=== PATIENT | female | born 1980 | race Two or more races ===

== ENCOUNTER 2022-12-25 13:14 | Emergency (ER) | payer OTHER ==
[~2022-12-25] VITALS: Ht 167.6 cm; Wt 86.0 kg
[2022-12-25] MEDS ORDERED: DexAMETHasone SOD PHOS 10MG/1ML VIAL INJ IM ONE (16:00)
[2022-12-25 17:18] VITALS: BP 124/74; PULSE 86; RESP 18; TEMP 97.9; O2SAT 98
== END 2022-12-25 17:20 | disposition home or self-care (01) ==
LOC: ER 13:14 → EDBD 13:14 → ER 17:20
DX: S09.90XA Unspecified injury of head, initial encounter (principal); J45.909 Unspecified asthma, uncomplicated; Z88.8 Allergy status to other drugs, medicaments and biological substances; Z90.710 Acquired absence of both cervix and uterus; Z90.89 Acquired absence of other organs; Z98.890 Other specified postprocedural states; V89.2XXA Person injured in unspecified motor-vehicle accident, traffic, initial encounter; Y93.89 Activity, other specified; Y92.89 Other specified places as the place of occurrence of the external cause; Y99.8 Other external cause status
CPT/HCPCS: 70450; 96372; 99285; J1100

== ENCOUNTER 2024-08-01 12:26 | Emergency (ER) | payer MEDICAID, OTHER ==
[~2024-08-01] VITALS: Ht 167.6 cm; Wt 91.0 kg
[2024-08-01 12:48] VITALS: TEMP 97.7
[2024-08-01 13:26] LABS: Basophils # (auto) 0 10 ^3/uL (0-0.2); Basophils % (auto) 0.4 % (0.0-2.0); Eosinophils # (auto) 0.3 10 ^3/uL (0-0.8); Hematocrit 45.8 % (36.0-46.0); Hemoglobin 15.5 g/dL (12.2-16.2); Lymphocytes # (auto) 3.8 10 ^3/uL (0.4-5.4); Lymphocytes % (auto) 40.6 % (10.0-50.0); Mean Corpuscular Hemoglobin 29.4 pg (28.0-32.0); Mean Corpuscular Hgb Conc. 33.8 g/dL (32.0-36.0); Mean Corpuscular Volume 86.9 fL (80.0-100.0); Monocytes # (auto) 0.6 10 ^3/uL (0-1.3); Monocytes % (auto) 6.4 % (0.0-12.0); Neutrophils # (auto) 4.6 10 ^3/uL (1.6-8.6); Neutrophils % (auto) 49.6 % (37.0-80.0); Platelet Count (auto) 288 10^3/uL (140-450); Red Blood Cells 5.26 10^6/uL (4.0-5.20); Red Cell Distribution Width 14.6 % (11.8-14.3); White Blood Cell 9.3 10^3/uL (4.4-10.8)
[2024-08-01 13:33] LABS: Anion Gap 11 (5-15); Carbon Dioxide 23 mmol/L (20-31); Chloride 107 mmol/L (98-107); Potassium 3.6 mmol/L (3.5-5.1); Sodium 141 mmol/L (136-145)
[2024-08-01 13:34] LABS: Calcium 9.9 mg/dL (8.7-10.4)
[2024-08-01 13:39] LABS: BUN/Creatinine Ratio 18.1 (10.0-20.0); Blood Urea Nitrogen 13 mg/dL (9-23); Glucose 96 mg/dL (74-106)
[2024-08-01 13:59] LABS: Urine Bacteria FEW /hpf (None Seen); Urine Blood TRACE /uL (Negative); Urine Clarity Turbid (Clear); Urine Color Colorless (Yellow); Urine Protein, UAD Negative (Negative); Urine Specific Gravity 1.003 (1.001-1.035); Urine Squamous Epithelial Cell FEW /hpf (<5); Urine Urobilinogen Normal (Negative); Urine WBC 25 /HPF (0-5); Urine pH 6.5 (5.0-9.0)
[2024-08-01] MEDS: SODIUM CHLORIDE 0.9% 1,000 ML IV ONE (14:39)
[2024-08-01 14:40] VITALS: PULSE 94; RESP 16; O2SAT 97
--- NOTE | 2024-08-01 14:49 | DVH ---
EXAM: XY CHEST PORTABLE Indication: palpitations Technique: Single frontal view of the chest was obtained Comparison: None FINDINGS: Lines and Tubes: None Lungs: No focal consolidation. Pleura: No effusion. No pneumothorax. Cardiomediastinal contours: Unremarkable Bones: No acute osseous abnormality. IMPRESSION: No acute cardiopulmonary disease.
[2024-08-01] MEDS: cefTRIAXone 1GM/50ML D5W 50 ML IV ONE (15:30)
--- NOTE | 2024-08-01 16:19 | ED.PDOC ---
HPI Comments 44-year-old female presents with a chief complaint of palpitations. Patient states that she was sitting in [place] the [place] and started to have palpitations lasting approximately 8 minutes. Patient reports that this has happened to her before in the past. 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 EMS reports they suspected SVT, as heart rate was around 200 initially, however the patient converted prior to their ability to obtain an EKG showing tachycardia. Patient currently denies any palpitations, chest pain, shortness of breath, edema, recent illness or other symptoms. 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 Location: Chest (L) Radiation: No Radiation Quality: Other (PALPITATIONS) Onset: At Rest Cardiac Risk Factors: None PE Risk Factors: None History of: Other (SIMILAR SENSATION IN THE PAST) Past Medical History PAST MEDICAL HISTORY: Asthma Past Medical History (Other): Arias's disease Surgical History: Hysterectomy, Tonsillectomy 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: No Pertinent 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 Family History Family History: Reviewed,noncontributory to illness Social History Smoker: Non-Smoker Alcohol: Denies ETOH Use Drugs: Denies Drug Use Lives In: Home Constitutional: denies: chills, diaphoresis, fatigue, fever, malaise, sweats, weakness, others EENTM: denies: blurred vision, double vision, ear bleeding, ear discharge, ear drainage, ear pain, ear ringing, eye pain, eye redness, hearing loss, mouth pain, mouth swelling, nasal discharge, nose bleeding, nose congestion, nose pain, photophobia, tearing, throat pain, throat swelling, voice changes, others Respiratory: denies: cough, hemoptysis, orthopnea, SOB at rest, shortness of breath, SOB with excertion, stridor, wheezing, others Cardiovascular: reports: palpitations; denies: chest pain, dizzy spells, diaphoresis, Dyspnea on exertion, edema, irregular heart beat, left arm pain, lightheadedness, PND, syncope, others Gastrointestinal: denies: abdomen distended, abdominal pain, blood streaked bowels, constipated, diarrhea, dysphagia, difficulty swallowing, hematemesis, melena, nausea, poor appetite, poor fluid intake, rectal bleeding, rectal pain, vomiting, others Genitourinary: denies: abnormal vagina bleeding, burning, dyspareunia, dysuria, flank pain, frequency, hematuria, incontinence, pain, , vagina discha rge, urgency, others Neurological: denies: dizziness, fainting, headache, left sided numbness, left sided weakness, numbness, paresthesia, pre-existing deficit, right sided numbness, right sided weakness, seizure, speech problems, tingling, tremors, weakness, others Musculoskeletal: denies: back pain, gout, joint pain, joint swelling, muscle pain, muscle stiffness, neck pain, others Integumetry: denies: bruises, change in color, change in hair/nails, dryness, laceration, lesions, lumps, rash, wounds, others Allergic/Immunocompromised: denies: Difficulty Healing, Frequent Infections, Hives, Itching, others Hematologic/Lymphatic: denies: anemia, blood clots, easy bleeding, easy bruising, swollen glands, others Endocrine: denies: excessive hunger, excessive sweating, excessive thirst, excessive urination, flushing, intolerance to cold, intolerance to heat, unexplained weight gain, unexplained weight loss, others Psychiatric: denies: anxiety, bipolar disorder, depression, hopeless, panic disorder, schizophrenia, sleepless, suicidal, others All Other Systems: Reviewed and Negative Physical Exam General Appearance: No Apparent Distress HEENT: Other (Pupils and face symmetric. Moist mucous membranes.) Neck: Full Range of Motion, Normal Inspection Respiratory: Lungs Clear, No Accessory Muscle Use, No Respiratory Distress, Normal Breath Sounds Cardiovascular: No Edema, No JVD, Regular Rate/Rhythm Breast Exam: Deferred Gastrointestinal: Non Tender, Soft Genitalia: Deferred Pelvic: Deferred Rectal: Deferred Extremities: Normal inspection, Normal range of motion, Non-tender, No pedal edema Neurologic: Alert (Oriented x4), Normal Affect, Normal Mood, Other (Ambulatory) Cerebellar Function: NOT DONE Reflexes: NOT DONE Skin: Dry, Normal Color, Warm Lymphatic: NOT DONE EKG EKG : Comments Sinus rhythm, rate 94, normal intervals, normal axis, normal QRS, nonspecific T change. Was a procedure done? Was a procedure done?: No CP Differential Dx Differential Diagnosis: A-fib, A-Flutter, Atrial Dysrhythmia, Electrolyte Disorder, Heart Failure, Hyperthyroidism, AK, PSVT, V-Tach X-Ray, Labs, Meds, VS Vital Signs Date Time Temp Pulse Resp B/P (MAP) Pulse Ox O2 Delivery O2 Flow Rate FiO2 08/01/24 14:45 96 Room Air* 0 21 08/01/24 14:40 94 16 97 Room Air* 0 21 08/01/24 14:40 92 16 96/71 (79) 95 08/01/24 12:48 97.7 100 16 114/75 (88) 100 97.7 08/01/24 12:26 94 Lab Test 08/01/24 14:22 08/01/24 13:39 08/01/24 13:14 Range/Units Troponin I High Sensitivity 4 4 </=34 ng/L Urine Color Colorless Yellow Urine Clarity Turbid H Clear Urine pH 6.5 5.0-9.0 Urine Specific [place] 1.003 1.001-1.035 Urine Protein Negative Negative Urine Ketones Negative Negative Urine Blood Trace H Negative /uL Urine Nitrite Negative Negative Urine Bilirubin Negative Negative Urine Urobilinogen Normal Negative mg/dL Urine Leukocyte Esterase 3+ Negative /uL Urine RBC 8 0 - 4 /hpf Urine Microscopic WBC 25 H 0-5 /HPF Urine Squamous Epithelial Cells Few <5 /hpf Urine Bacteria Few H None Seen /hpf Urine Glucose Normal Normal mg/dL Urine Test Negative Negative White Blood Count 9.3 4.4-10.8 10^3/uL Red Blood Count 5.26 H 4.0-5.20 10^6/uL Hemoglobin 15.5 12.2-16.2 g/dL Hematocrit 45.8 36.0-46.0 % Mean Corpuscular Volume 86.9 80.0-100.0 fL Mean Corpuscular Hemoglobin 29.4 28.0-32.0 pg Mean Corpuscular Hemoglobin Concent 33.8 32.0-36.0 g/dL Red Cell Distribution Width 14.6 H 11.8-14.3 % Platelet Count 288 140-450 10^3/uL Mean Platelet Volume 8.5 6.9-10.8 fL Neutrophils (%) (Auto) 49.6 37.0-80.0 % Lymphocytes (%) (Auto) 40.6 10.0-50.0 % Monocytes (%) (Auto) 6.4 0.0-12.0 % Eosinophils (%) (Auto) 3.0 0.0-7.0 % Basophils (%) (Auto) 0.4 0.0-2.0 % Neutrophils # (Auto) 4.6 1.6-8.6 10 ^3/uL Lymphocytes # (Auto) 3.8 0.4-5.4 10 ^3/uL Monocytes # (Auto) 0.6 0-1.3 10 ^3/uL Eosinophils # (Auto) 0.3 0-0.8 10 ^3/uL Basophils # (Auto) 0 0-0.2 10 ^3/uL Nucleated Red Blood Cells 0.0 % Sodium Level 141 136-145 mmol/L Potassium Level 3.6 3.5-5.1 mmol/L Chloride Level 107 98-107 mmol/L Carbon Dioxide Level 23 20-31 mmol/L Anion Gap 11 5-15 Blood Urea Nitrogen 13 9-23 mg/dL Creatinine 0.72 0.550-1.02 mg/dL Glomerular Filtration Rate Calc 104 >90 mL/min BUN/Creatinine Ratio 18.1 10.0-20.0 Serum Glucose 96 74-106 mg/dL Calcium Level 9.9 8.7-10.4 mg/dL B-Type Natriuretic Peptide 8.76 0-100 pg/mL Current Medications Medications (Trade) Dose Ordered Sig/Jhon Route Start Time Stop Time Status Last Admin Sodium Chloride 1,000 ml @ 1,000 mls/hr Q1H ONCE IV 08/01/24 13:00 08/01/24 13:59 DC 08/01/24 14:39 PROCEDURE(s): CXRP - CHEST PORTABLE REASON: palpitations ORDER NUMBER(s): [id number], ACCESSION NUMBER(s): [id number] EXAM: XY CHEST PORTABLE Indication: palpitations Technique: Single frontal view of the chest was obtained Comparison: None FINDINGS: Lines and Tubes: None Lungs: No focal consolidation. Pleura: No effusion. No pneumothorax. Cardiomediastinal contours: Unremarkable Bones: No acute osseous abnormality. IMPRESSION: No acute cardiopulmonary disease. X-Ray, Labs, Meds, VS Comment 44-year-old female with a history of [place]'s disease complaining of palpitations. Palpitations resolved prior to arrival in ED. Vitals unremarkable Exam unremarkable Rhythm strip independently interpreted by me: Sinus rhythm, rate eighty-four, no ectopy. Chest x-ray unremarkable CBC, basic metabolic panel, BNP and 2 serial troponins unremarkable. Urine test negative. UA abnormal consistent with UTI Patient treated with the following in the ED: 1 L 0.9 normal saline IV bolus, Rocephin 1 g IV On re-evaluation, patient is in a sinus rhythm, which has been persistent throughout her stay in the ED. Hospitalization was recommended for observation and Cardiology evaluation, however the patient states that she has a follow-up appointment with her primary doctor within the next 3 days and also has a referral to Cardiology. Patient states her daughter is graduating from college tomorrow and she does not want to be admitted and missed the ceremony. Patient was advised to call 911 immediately for recurrent symptoms. She expressed understanding and agreed. Time of 1ST Reevaluation: 15:41 Reevaluation 1ST: Unchanged Patient Education/Counseling: Diagnosis, Treatment Family Education/Counseling: No Family Present Departure 1 Departure Time of Disposition: 17:25 Impression: Primary Impression: Palpitations Additional Impression: UTI (urinary tract infection) Qualified Codes: N39.0 - Urinary tract infection, site not specified Disposition: HOME / SELF CARE / HOMELESS Condition: Stable Additional Instructions: Your blood tests, including screening test for heart attack and heart failure, were unremarkable. Your EKG was unremarkable. Your chest x-ray was normal. Your urine test was abnormal, consistent with a urinary tract infection. I have prescribed antibiotics. 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 Return to ED or call 911 for recurrent symptoms or any other concern. e-Prescriptions Cephalexin Monohydrate (Cephalexin) 500 Mg Tab 1 TAB PO QID for 10 Days, #40 TAB Prov: HILARIO RUSSELL MD 08/01/24 Discharged With: Relative Critical Care Note Critical Care Time?: No Stability Stability form required: No Heart Score Heart Score: Heart Score Response (Comments) Value History Slightly Suspicious 0 EKG Repolarization Disturb 1 Age 45-64 1 Risk Factors No known risk factors 0 Troponin Normal limit 0 Total 2 I personally scribed for HILARIO RUSSELL MD ([email or web address]) on 08/01/24 at 16:19. Electronically submitted by Lucho Mak ([email or web address]). HILARIO RUSSELL MD August 01, 2024 16:19
[2024-08-01] MEDS ORDERED: CEPH500T PO (17:27)
[2024-08-01 18:00] VITALS: BP 85/59; PULSE 76; RESP 13; O2SAT 98
--- NOTE | 2024-08-01 18:50 | ECG ---
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
== END 2024-08-01 19:09 | disposition home or self-care (01) ==
LOC: EDUNIT# 12:26 → EDBD 12:26 → ER 12:30
DX: R00.2 Palpitations (principal); N39.0 Urinary tract infection, site not specified; J45.909 Unspecified asthma, uncomplicated; Z90.710 Acquired absence of both cervix and uterus; Z90.89 Acquired absence of other organs; Z79.899 Other long term (current) drug therapy
CPT/HCPCS: 36415; 71045; 80048; 81001; 81025; 83880; 84484; 85025; 93005; 96361; 96365; 99285; J0696; J7030

== ENCOUNTER 2024-12-11 16:58 | Inpatient (IN) | payer MEDICAID ==
[~2024-12-11] VITALS: Ht 167.6 cm; Wt 88.0 kg
[~2024-12-11 16:58] MED LIST: CEPH500T PO
--- NOTE | 2024-12-11 17:04 | ED.PDOC ---
HPI Comments 44-year-old female who presents to the ED via EMS with c/c of syncope patient states he has a history of SVT and states she started to feel her heart was racing and started to get dizzy and that had syncopal episode earlier this afternoon approximately 1 hours prior to ED arrival patient was after waking from syncopal episodes she started to have right shoulder pain and called EMS EMS arrived on scene and patient was alert oriented and IV was established was given normal saline and brought to the ED patient now in the ED denies chest pain shortness of breath Patient states with the take metoprolol but states she does not take it regularly because her blood pressure runs low patient otherwise states that she is to have an cardiac ablation but states it is not yet scheduled. Patient states that she does not think she hit her head. Patient states she has some right shoulder pain but has full range of motion in it. Patient is not on blood thinners. Patient is awaiting ablation procedure in the near future. Past Medical history: SVT, [place]'s disease, Reymundo's disease, thyroid disease, asthma Past Surgical history: For phlegmon patient, tummy tuck, tonsillectomy, hysterectomy Medications: Metoprolol, levothyroxine, however patient has not been taking her metoprolol. Allergies: Demerol Social history: denies ETOH, denies tobacco use, denies drug use HPI: Poor Historian. Past Medical History: Past Surgical History: REVIEW OF SYSTEMS: CONSTITUTIONAL: Denies acute: fever, diaphoresis, chills, generalized weakness. HEAD: Denies acute: headache, photophobia Eyes: Denies acute: Double vision, vision loss, eye pain, eye discharge. EARS: Denies acute: tinnitus, hearing loss, ear discharge, ear pain, THROAT: Denies acute: sore throat, swelling, difficulty swallowing , pain with swallowing, change in voice. NECK: Denies acute: neck pain, neck swelling, stiff neck. HEART: Denies acute : chest pain, palpitations, LUNGS: Denies acute: SOB, wheezing, cough, hemoptysis ABDOMEN: Denies acute: abdominal pain, Nausea, Vomiting, diarrhea, melena , hematemesis, hematochezia SKIN: Denies acute: rash, redness, lesions, itchiness. EXTREMITIES: Denies acute: calf pain, numbness, tingling, weakness, denies pain in extremity. Denies acute: Low back pain. Neuro: Denies acute: focal neurological deficit, motor or sensory focal neurological deficit, tremors, seizure like activity, confusion, dizziness, change in mental status, loss of bowel or bladder function, cauda equina like symptoms. : Denies acute: dysuria, hematuria, flank pain, increase in urinary frequency. PSYCH: Denies acute: hallucination, suicidal ideation, homicidal ideation. FEMALE: Denies acute: abnormal vaginal bleeding, foul odor, unusual discharge. PHYSICAL EXAM: General: -----mild---acute distress, awake and alert. Head: normocephalic, atraumatic. Neck: supple, trachea is midline, no swelling. Cervical spine: Palpation of the posterior midline of the cervical spine reveals no focal swelling, erythema, focal tenderness to palpation. Patient has normal range of motion. Throat: Normal phonation. Eyes:, no erythema, no purulent discharge, no proptosis, no icterus. Heart: regular rate, regular rhythm, no significant murmur appreciated. Lungs: no apparent respiratory distress, Able to speak in full sentences. No wheezing, no rhonchi, no crackles. No stridors Clear to auscultation bilaterally. Abdomen: non tender to palpation, non distended, soft, no guarding, no rebound, + bowel sounds. Evaluation of the right shoulder: No focal tenderness to palpation. No swelling, no deformity, full range of motion. Patient is neurovascularly intact in the affected extremity. Radial pulses palpable. Good developer analyst muscle. Neuro: Awake, Alert, oriented to name, self, situation, follows commands GCS=15. Speech is normal. Skin: no petechia, no purpura, no cyanosis, non-pale, not jaundice. Lower extremities: --no - Pitting edema no deformity, no focal swelling, no calf TTP. Makes eye contact. moves all four extremities. Face: no apparent facial droop. No nuchal rigidity, Kernig's sign, Brudzinski's sign, no meningeal signs. ED COURSE: DISCLAIMER: This medical document was created using an electronic medical record system with voice recognition software and computerized dictation system. Although this document has been carefully reviewed, there might still be some phonetic and typographical errors. Occasional wrong-word or "sound-alike" substitutions may have occurred due to the inherent limitations of voice recognition software. These areas are purely typographical due to imperfections of the software programs and do not reflect any compromise in the patient's medical care. Please read the chart carefully and recognize, using context, where these substitutions have occurred. 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, Allergies Allergies: Uncoded Allergies: DEMEROL (Allergy, Severe, 12/25/22) Home Meds Active Scripts Cephalexin Monohydrate (Cephalexin) 500 Mg Tab, 1 TAB PO QID for 10 Days, #40 TAB Prov:HILARIO RUSSELL MD 08/01/24 Information Source: Patient, Emergency Med Personnel Mode of Arrival: EMS Past Medical History PAST MEDICAL HISTORY: Asthma Surgical History: Hysterectomy, Tonsillectomy COFFEE SHOP MANAGER History: No Pertinent COFFEE SHOP MANAGER History Family History Family History: Reviewed,noncontributory to illness Social History Smoker: Non-Smoker Alcohol: Denies ETOH Use Drugs: Denies Drug Use Lives In: Home Was a procedure done? Was a procedure done?: No CP Differential Dx Differential Diagnosis: A-fib, A-Flutter, Angina, Anxiety / Panic Attack, Atrial Dysrhythmia, AV Block 1st Degree, AV Block 2nd Degree, AV Block 3rd Degree, Digoxin Toxicity, Electrolyte Disorder, Heart Failure, Hyperthyroidism, Hyperventilation, Hypoxia, MAT, ID, PAC's, Pacemaker Malfunction, PSVT, Pulmonary Embolus, PVC's, Renal Failure, Sinus Tachycardia, Torsades De Pointes, Ventricular Dysrhythmia, V-Fib, V-Tach, WPW X-Ray, Labs, Meds, VS Vital Signs Date Time Temp Pulse Resp B/P (MAP) Pulse Ox O2 Delivery O2 Flow Rate FiO2 12/11/24 19:45 76 14 98 Room Air* 0 21 12/11/24 18:00 75 12 105/62 (76) 99 12/11/24 17:47 76 14 96 Room Air* 0 21 12/11/24 17:47 98.0 76 14 102/71 (81) 96 98.0 12/11/24 17:11 66 12/11/24 17:03 97.3 71 16 146/95 98 97.3 Lab Test 12/11/24 20:25 12/11/24 18:58 12/11/24 18:10 12/11/24 17:20 Range/Units Troponin I High Sensitivity 3 L < 3 L < 3 L </=34 ng/L Urine Color Colorless Yellow Urine Clarity Clear Clear Urine pH 7.0 5.0-9.0 Urine Specific [place] 1.005 1.001-1.035 Urine Protein Negative Negative Urine Ketones Negative Negative Urine Blood Negative Negative /uL Urine Nitrite Negative Negative Urine Bilirubin Negative Negative Urine Urobilinogen Normal Negative mg/dL Urine Leukocyte Esterase 2+ Negative /uL Urine RBC <1 0 - 4 /hpf Urine Microscopic WBC 5 0-5 /HPF Urine Squamous Epithelial Cells Few <5 /hpf Urine Bacteria None seen None Seen /hpf Urine Glucose Normal Normal mg/dL White Blood Count 9.2 4.4-10.8 10^3/uL Red Blood Count 4.58 4.0-5.20 10^6/uL Hemoglobin 13.4 12.2-16.2 g/dL Hematocrit 40.3 36.0-46.0 % Mean Corpuscular Volume 87.9 80.0-100.0 fL Mean Corpuscular Hemoglobin 29.2 28.0-32.0 pg Mean Corpuscular Hemoglobin Concent 33.3 32.0-36.0 g/dL Red Cell Distribution Width 14.2 11.8-14.3 % Platelet Count 262 140-450 10^3/uL Mean Platelet Volume 8.0 6.9-10.8 fL Neutrophils (%) (Auto) 59.3 37.0-80.0 % Lymphocytes (%) (Auto) 33.2 10.0-50.0 % Monocytes (%) (Auto) 5.2 0.0-12.0 % Eosinophils (%) (Auto) 1.9 0.0-7.0 % Basophils (%) (Auto) 0.4 0.0-2.0 % Neutrophils # (Auto) 5.5 1.6-8.6 10 ^3/uL Lymphocytes # (Auto) 3.1 0.4-5.4 10 ^3/uL Monocytes # (Auto) 0.5 0-1.3 10 ^3/uL Eosinophils # (Auto) 0.2 0-0.8 10 ^3/uL Basophils # (Auto) 0 0-0.2 10 ^3/uL Nucleated Red Blood Cells 0.0 % Sodium Level 140 136-145 mmol/L Potassium Level 3.8 3.5-5.1 mmol/L Chloride Level 105 98-107 mmol/L Carbon Dioxide Level 27 20-31 mmol/L Anion Gap 8 5-15 Blood Urea Nitrogen 10 9-23 mg/dL Creatinine 0.81 0.550-1.02 mg/dL Glomerular Filtration Rate Calc 91 >90 mL/min BUN/Creatinine Ratio 12.3 10.0-20.0 Serum Glucose 103 74-106 mg/dL Lactic Acid Level 1.6 0.4-2.0 mmol/L Calcium Level 9.0 8.7-10.4 mg/dL Magnesium Level 2.0 1.6-2.6 mg/dL Total Bilirubin 0.3 0.2-1.0 mg/dL Aspartate Amino Transferase (AST) 15 13-40 U/L Alanine Aminotransferase (ALT) 20 7-40 U/L Alkaline Phosphatase 55 46-116 U/L Total Protein 6.4 5.7-8.2 g/dL Albumin 3.9 3.2-4.8 g/dL [place] [address] Ph: [phone] DIAGNOSTIC IMAGING Diagnostic Imaging Report : [id number] Signed PATIENT: NEGAR MCDONNELL ACCT: [id number] UNIT: [id number] : 1980 LOC: ER ROOM / BED: / AGE / SEX: 44 / F ADM STATUS: REG ER SERVICE [id number] ORDERING PHYSICIAN: RAHEEM DOE DO PROCEDURE(s): HWOCT - HEAD WITHOUT CONTRAST REASON: syncope and collapse ORDER NUMBER(s): [id number], ACCESSION NUMBER(s): [id number] Exam: CT HEAD WITHOUT CONTRAST History: syncope and collapse Technique: [address] images through the posterior fossa and the supratentorial compartment were acquired without contrast and imaged using soft tissue and bone algorithms. RADIATION DOSE: DLP 881.82 mGy.cm; CTDI vol 55.01 mGy. Comparison: CT HEAD WITHOUT CONTRAST on DOS: 12/25/22 Findings: There is no evidence of an intracranial hemorrhage, acute large vessel infarct, mass effect, or midline shift. The calvarium, orbits, paranasal sinuses, sella, middle ears, and mastoids are unremarkable. The superficial soft tissues are within normal limits. Impression: 1. No acute intracranial abnormality. ATED BY: CATHY SOLER DO DICTATED DATE/TIME: 12/11/241824 SIGNED BY: CATHY SOLER DO SIGNED DATE/TIME: 12/11/241824 CC: [place] [address] Ph: [phone] DIAGNOSTIC IMAGING Diagnostic Imaging Report : [id number] Signed PATIENT: NEGAR MCDONNELL ACCT: [id number] UNIT: [id number] : 1980 LOC: ER ROOM / BED: / AGE / SEX: 44 / F ADM STATUS: REG ER SERVICE 08 ORDERING PHYSICIAN: RAHEEM DOE DO PROCEDURE(s): CXRP - CHEST PORTABLE REASON: syncope and collapse ORDER NUMBER(s): [id number], ACCESSION NUMBER(s): [id number] CHEST RADIOGRAPH Indication: syncope and collapse Technique: XY CHEST PORTABLE Comparison: None FINDINGS: The cardiac silhouette is unremarkable. The lungs demonstrate no pulmonary airspace consolidation. The pulmonary vasculature is unremarkable. There is no pleural effusion. There is no pneumothorax. IMPRESSION: No pulmonary airspace consolidation. ATED BY: ALIA OATES MD DICTATED DATE/TIME: 12/11/241838 SIGNED BY: ALIA OATES MD SIGNED DATE/TIME: 12/11/241838 CC: [place] [address] Ph: [phone] DIAGNOSTIC IMAGING Diagnostic Imaging Report : [id number] Signed PATIENT: NEGAR MCDONNELL ACCT: [id number] UNIT: [id number] : 1980 LOC: ER ROOM / BED: / AGE / SEX: 44 / F ADM STATUS: REG ER SERVICE 08 ORDERING PHYSICIAN: RAHEEM DOE DO PROCEDURE(s): HWOCT - HEAD WITHOUT CONTRAST REASON: syncope and collapse ORDER NUMBER(s): [id number], ACCESSION NUMBER(s): [id number] Exam: CT HEAD WITHOUT CONTRAST History: syncope and collapse Technique: [address] images through the posterior fossa and the supratentorial compartment were acquired without contrast and imaged using soft tissue and bone algorithms. RADIATION DOSE: DLP 881.82 mGy.cm; CTDI vol 55.01 mGy. Comparison: CT HEAD WITHOUT CONTRAST on DOS: 12/25/22 Findings: There is no evidence of an intracranial hemorrhage, acute large vessel infarct, mass effect, or midline shift. The calvarium, orbits, paranasal sinuses, sella, middle ears, and mastoids are unremarkable. The superficial soft tissues are within normal limits. Impression: 1. No acute intracranial abnormality. ATED BY: CATHY SOLER DO DICTATED DATE/TIME: 12/11/241824 SIGNED BY: CATHY SOLER DO SIGNED DATE/TIME: 12/11/241824 CC: Time of 1ST Reevaluation: 00:00 Reevaluation 1ST: N/A Patient Education/Counseling: Diagnosis, Treatment Family Education/Counseling: No Family Present Comments MDM: patient presented with the above HPI.----syncope and collapse--workup was initiated. patient was found with the above mentioned diagnosis. the following medications were ordered: please refer to order lists of meds and tests obtained by myself Dr. Doe. Patient ED course and VS have been stabilized. Patient has been reassessed in the ED and remained in a stable condition. Pertinent incidental findings were discussed with the patient and/or family. Patient/family voices understanding and is agreeable with plan. Patient has been observed in the ED adequate length of time to insure improv ement/stability. Escalation of care considered: Consideration of escalation to observation or admission Patient was ADMITTED to the medicine team for further evaluation and treatment of their presentation. All the reports of any imaging studies that were ordered by myself were reviewed by myself. 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 (12/11/24 ) Chest Portable (12/11/24 17:09) Head Without Contrast (12/11/24 17:09) Vital Signs Date Time Temp Pulse Resp B/P (MAP) Pulse Ox O2 Delivery O2 Flow Rate FiO2 12/11/24 19:45 76 14 98 Room Air* 0 21 12/11/24 18:00 75 12 105/62 (76) 99 12/11/24 17:47 76 14 96 Room Air* 0 21 12/11/24 17:47 98.0 76 14 102/71 (81) 96 98.0 12/11/24 17:11 66 12/11/24 17:03 97.3 71 16 146/95 98 97.3 Laboratory Tests Test 12/11/24 17:20 Lactic Acid Level 1.6 mmol/L (0.4-2.0) White Blood Count 9.2 10^3/uL (4.4-10.8) Departure 1 Departure Time of Disposition: 19:09 Impression: Primary Impression: Syncope and collapse Disposition: ADMITTED INPATIENT Admit to: [facility] Condition: Guarded Discharged With: Self Critical Care Note Critical Care Time?: No Heart Score Heart Score: Heart Score Response (Comments) Value History Moderate Suspicious 1 EKG Normal 0 Age 45-64 1 Risk Factors 1 or 2 risk factors 1 Troponin Normal limit 0 Total 3 I personally scribed for RAHEEM DOE DO ([email or web address]) on 12/11/24 at 17:03. Electronically submitted by Melinda Johnson ([facility]). I personally scribed for RAHEEM DOE DO ([email or web address]) on 12/11/24 at 17:12. Electronically submitted by Melinda Johnson ([facility]). I personally scribed for RAHEEM ODE DO ([email or web address]) on 12/11/24 at 17:39. Electronically submitted by Melinda Johnson ([facility]). I personally scribed for RAHEEM DOE DO ([email or web address]) on 12/11/24 at 19:11. Electronically submitted by Melinda Johnson ([facility]). I personally scribed for RAHEEM DOE DO ([email or web address]) on 12/11/24 at 19:17. Electronically submitted by Melinda Johnson ([facility]). RAHEEM DOE DO Dec 11, 2024 17:03
[2024-12-11 17:27] LABS: Hematocrit 40.3 % (36.0-46.0); Hemoglobin 13.4 g/dL (12.2-16.2); Mean Corpuscular Hemoglobin 29.2 pg (28.0-32.0); Mean Corpuscular Volume 87.9 fL (80.0-100.0); Nucleated Red Blood Cells % 0.0 %
--- NOTE | 2024-12-11 17:37 | ECG ---
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
[2024-12-11 17:46] LABS: Alanine Aminotransferase 20 U/L (7-40); Albumin 3.9 g/dL (3.2-4.8); Alkaline Phosphatase 55 U/L (46-116); Anion Gap 8 (5-15); BUN/Creatinine Ratio 12.3 (10.0-20.0); Blood Urea Nitrogen 10 mg/dL (9-23); Calcium 9.0 mg/dL (8.7-10.4); Carbon Dioxide 27 mmol/L (20-31); Chloride 105 mmol/L (98-107); Glucose 103 mg/dL (74-106); Magnesium 2.0 mg/dL (1.6-2.6); Potassium 3.8 mmol/L (3.5-5.1); Sodium 140 mmol/L (136-145); Total Protein 6.4 g/dL (5.7-8.2)
[2024-12-11 17:47] VITALS: PULSE 76; RESP 14; TEMP 98; O2SAT 96
[2024-12-11 17:47] LABS: Bilirubin, Total 0.3 mg/dL (0.2-1.0)
--- NOTE | 2024-12-11 18:26 | DVH ---
Exam: CT HEAD WITHOUT CONTRAST History: syncope and collapse Technique: [address] images through the posterior fossa and the supratentorial compart ment were acquired without contrast and imaged using soft tissue and bone algorithms. RADIATION DOSE: DLP 881.82 mGy.cm; CTDI vol 55.01 mGy. Comparison: CT HEAD WITHOUT CONTRAST on DOS: 12/25/22 Findings: There is no evidence of an intracranial hemorrhage, acute large vessel infarct, mass effect, or midli ne shift. The calvarium, orbits, paranasal sinuses, sella, middle ears, and mastoids are unremarkable. The superficial soft tissues are within normal limits. Impression: 1. No acute intracranial abnormality.
--- NOTE | 2024-12-11 18:38 | DVH ---
CHEST RADIOGRAPH Indication: syncope and collapse Technique: XY CHEST PORTABLE Comparison: None FINDINGS: The cardiac silhouette is unremarkable. The lungs demonstrate no pulmonary airspace consolidation. Th e pulmonary vasculature is unremarkable. There is no pleural effusion. There is no pneumothorax. IMPRESSION: No pulmonary airspace consolidation.
[2024-12-11 19:12] LABS: Urine Protein, UAD Negative (Negative)
[2024-12-11 19:45] VITALS: PULSE 76; RESP 14; O2SAT 98
[2024-12-11 22:00] VITALS: BP 98/70; PULSE 75; RESP 14; O2SAT 99
[2024-12-11] MEDS ORDERED: TEMAZEPAM 15 MG CAP PO PRN (22:00)
[2024-12-11] MEDS ORDERED: SODIUM CHLORIDE 0.9% 1,000 ML IV SCH (22:00)
[2024-12-11] MEDS ORDERED: ONDANSETRON HCL 4 MG/2 ML VIAL IV PRN (22:00)
[2024-12-11] MEDS ORDERED: NITROGLYCERIN 0.4 MG SL TAB SL PRN (22:00)
[2024-12-11] MEDS ORDERED: MORPHINE SULFATE INJ 2 MG/ml SYRG IV PRN (22:00)
[2024-12-11] MEDS ORDERED: DOCUSATE SOD 100 MG CAP PO PRN (22:00)
[2024-12-11] MEDS ORDERED: ASCORBIC ACID 500 MG TAB PO SCH (22:00)
[2024-12-11] MEDS ORDERED: ACETAMINOPHEN 325 MG TAB PO PRN ×2 (22:00)
[2024-12-12] MEDS ORDERED: MULTIPLE VITAMIN TAB PO SCH (10:00)
[2024-12-12] MEDS ORDERED: ZINC SULFATE 220mg CAP or TAB PO SCH (10:00)
== END 2024-12-11 23:10 | disposition left against medical advice (07) | DRG 204 ==
LOC: EDUNIT# 16:58 → ER 16:58 → EDBD 16:58 → OVERFLOW 21:58
PROVIDERS: ADMIT Internal Medicine; ATTEND Internal Medicine
DX: R55 Syncope and collapse (principal); E27.1 Primary adrenocortical insufficiency; J45.909 Unspecified asthma, uncomplicated; M25.511 Pain in right shoulder; Z53.29 Procedure and treatment not carried out because of patient's decision for other reasons; Z90.710 Acquired absence of both cervix and uterus
CPT/HCPCS: 36415; 70450; 71045; 80053; 81001; 83605; 83735; 84484; 85025; 93005; G0378